=== PATIENT | female | born 1980 | race Caucasian/White ===

== ENCOUNTER 2017-05-25 18:53 | Emergency (ER) | payer MEDICAID, OTHER ==
--- NOTE | 2017-05-25 19:14 | ED Physician Documentation ---
General Adult - HISTORIAN Historian: patient - HPI Stated Complaint: Chest Pain Chief Complaint: General Adult Onset: hours Timing: still present Severity: moderate Further Comments: yes (Pt is a 37 yo female with chest pain in the L upper chest. Pain began with stomach pain. Pt has GERD for which she takes carafate. Then pain moved to L upper chest. Pt was sitting when pain began. Pt has had nausea, sob. Pt is a 2-pack/day smoker. Family hx heart dz.) - ROS CONST: no problems EYES/ENT: none CVS/RESP: chest pain, shortness of breath GI/: nausea MS/SKIN/LYMPH: none - PAST HX Past History: other (GERD) Surgeries/Procedures: , cholecystectomy Allergies/Adverse Reactions: Allergies Allergy/AdvReac Type Severity Reaction Status Date / Time No Known Allergies Allergy Verified 05/25/17 19:00 Home Medications: Ambulatory Orders Medication Instructions Recorded Sucralfate [Carafate] 1 gm PO ACHS 05/25/17 - SOCIAL HX Smoking History: greater than 1 pack/day - FAMILY HX Family History: Yes (Father CAD age < 50; Mother CHF) - VITAL SIGNS Vital Signs: Vital Signs Temp Pulse Resp BP Pulse Ox 98.0 F 82 22 125/55 98 05/25/17 19:01 05/25/17 19:01 05/25/17 19:01 05/25/17 19:01 05/25/17 19:01 - REVIEWED ASSESSMENTS Nursing Assessment Reviewed: Yes Vitals Reviewed: Yes Progress - Progress Progress: Diazepam 5 mg IV sx improved/resolved - EKG/XRAY/CT EKG: NSR (HR=79; normal EKG) XRAY: chest (no acute process) ED Results Lab/Radiology - Orders Orders: ED Orders Category Date Time Status Continuous EKG monitoring Q30M Care 05/25/17 19:01 Active Continuous Pulse Oximetry Q30M Care 05/25/17 19:01 Active CHEST 1 VIEW [RAD] Stat Exams 05/25/17 19:01 Ordered CBC/PLATELET/DIFF Routine Lab 05/25/17 19:01 Ordered CMP Routine Lab 05/25/17 19:01 Ordered CREATINE KINASE Routine Lab 05/25/17 19:01 Ordered TROPONIN I (cTnI) Stat Lab 05/25/17 19:01 Ordered Oxygen Daily Oxygen 05/25/17 19:15 Ordered EKG WITH COMPARISON Stat Ther 05/25/17 19:01 Ordered General Adult Physical Exam - PHYSICAL EXAM GENERAL APPEARANCE: mild distress (anxious) NECK: normal inspection, supple RESPIRATORY: no resp distress, chest non-tender, breath sounds normal CVS: reg rate & rhythm, heart sounds normal ABDOMEN: soft, no organomegaly, normal bowel sounds BACK: normal inspection, no CVA tenderness SKIN: warm/dry, normal color EXTREMITIES: non-tender, normal range of motion, no evidence of injury NEURO: oriented X3, motor nml, sensation nml, other (anxious) Discharge Clincal Impression: non-cardiac chest pain, anxiety Referrals: Hien Luevano MD [STAFF PHYSICIAN] - Home Medications: Ambulatory Orders Sucralfate [Carafate] 1 gm PO ACHS 05/25/17 Condition: Good Disposition: 01 HOME, SELF-CARE Decision to Admit: NO Decision Time: 21:37
[2017-05-25 19:19] LABS: BASOPHILS % 0.9 (0.0-1.5); EOSINOPHILS % 4.7 % (0.0-6.8); MEAN CORPUSCULAR HEMOGLOBIN 30.5 pg (28.0-34.0); MEAN CORPUSCULAR VOLUME 90.7 fl (80.0-100.0); MONOCYTES % 3.6 % (0.0-11.0); NEUTROPHILS # 5.4 # k/uL (1.4-7.7)
[2017-05-25 19:32] LABS: eGFR (African) > 60; eGFR (Non-African) > 60
[2017-05-25] MEDS ORDERED: DIAZEPAM 5 MG/ML DISP.SYRIN IVP ONE (20:08)
[2017-05-25 21:41] VITALS: BP 116/58
--- NOTE | 2017-05-26 06:28 | Diagnostic Imaging Report ---
SIMON GAYTAN [facility] [address] [facility] [address] [place], [place]. [address] Report Submission Date: May 25, 2017 7:55:34 PM CDT Patient Study Name: ADRYAN CALLAHAN Date: May 25, 2017 7:23:34 PM CDT Modality Type: CR Gender: F Description: CHEST : 84 Institution: [facility] Physician: SIMON GAYTAN Examination: Portable chest History: Chest discomfort Findings: Single view of the chest demonstrates a normal cardiac and mediastinal silhouette. Lung daniel without focal infiltrate. No effusion. Osseous structures are appropriate for age. Impression: No acute process given technique. Electronically signed on May 25, 2017 7:55:34 PM CDT by: Earnest TREJO
== END 2017-05-25 21:40 | disposition home or self-care (01) ==
LOC: ED 18:53
DX: R07.89 Other chest pain (principal)
CPT/HCPCS: 71010; 80053; 82550; 82553; 84484; 85025; 85379; J3360; 96372; 99283; S1016

== ENCOUNTER 2017-08-05 18:21 | Emergency (ER) | payer MEDICAID, OTHER ==
[2017-08-05 18:43] VITALS: BP 127/57
--- NOTE | 2017-08-05 18:50 | ED Physician Documentation ---
Upper Back Injury/Pain - HISTORIAN Historian: patient, friend - HPI Stated Complaint: Mid-back pain Chief Complaint: Upper Back Injury/ Pain Onset: days ago (10) Duration: continues in ED, worse Context: lifting, turning Where: work Other Injuries: back Severity: moderate Quality: burning, dull. denies: other (no prev mid back pain) Exacerbated By: movement of trunk, deep breaths Relieved By: other (gabapentin) - ROS EYES/ENT: none CVS/RESP: denies: shortness of breath (hurts to takedeep breath) CONST: denies: recent illness GI/: denies: nausea, vomiting - PAST HX Past History: intervertebral disc dis. (lumbar area) Cardiac Risk Factors: denies: cardiac disease CT/MRI: No - SOCIAL HX Smoking History: greater than 1 pack/day Alcohol Use: none Drug Use: none - FAMILY HX Family History: no significant history - REVIEWED ASSESSMENTS Nursing Assessment Reviewed: Yes Vitals Reviewed: Yes <Jordan Eid - Last Filed: 08/05/17 19:14> - ROS NEURO/PSYCH: denies: difficulty with speech <GIOVANI SOTOMAYOR - Last Filed: 08/05/17 19:36> - HPI Additional Information: significant mid dorsal back pain onset 2 weeks ago lprog worse not rel by 2400mg ibu for 4 days-some help w/moms gabapentin. has lo back deg disc disease low back but this different. 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 which makes worse ( Jordan Eid) - PAST HX Allergies/Adverse Reactions: Allergies Allergy/AdvReac Type Severity Reaction Status Date / Time No Known Allergies Allergy Verified 08/05/17 18:45 Home Medications: Ambulatory Orders Medication Instructions Recorded Cyclobenzaprine HCl [Flexeril] 10 mg PO HS #10 tablet 08/05/17 Naproxen [Naprosyn] 375 mg PO Q12H #30 tablet 08/05/17 Omeprazole [Prilosec] 40 mg PO BID 08/05/17 Ranitidine HCl 150 mg PO D 08/05/17 Sucralfate [Carafate] 1 gm PO QID 08/05/17 Tramadol HCl [Ultram] 50 mg PO Q4H PRN #18 tablet 08/05/17 - VITAL SIGNS Vital Signs: Vital Signs Temp Pulse Resp BP Pulse Ox 98.2 F 82 20 127/57 98 08/05/17 18:21 08/05/17 18:21 08/05/17 18:21 08/05/17 18:21 08/05/17 18:21 Progress <Jordan Eid - Last Filed: 08/05/17 19:14> <GIOVANI SOTOMAYOR - Last Filed: 08/05/17 19:36> - Results/Orders Results/Orders: tnsf GIOVANI 191 (Jordan Eid) - Progress Progress: Name: ADRYAN CALLAHAN Date: Aug 05, 2017 7:05:08 PM CDT Modality Type: CT\SR Gender: F Description: CT T-SPINE W/O CONTRAS : 84 Institution: [facility] Physician: JORDAN EID - ER Examination: CT thoracic spine History: Back discomfort Comparison exams: None provided Technique: CT thoracic spine axial imaging with sagittal and coronal reconstruction Findings: Sagittal reconstruction demonstrates normal height and alignment the thoracic vertebral bodies. No anterior compression deformity. Slight curvature of the upper thoracic spine to the left. Coronal reconstruction does not demonstrate locked or perched facets. Axial imaging obtained from C7 through L1 Lamina and pedicles are intact. No ossific density within the central canal. No prevertebral soft tissue abnormality. Impression: No acute osseous process. If patient's symptoms persist, consider obtaining MRI to further evaluate. Electronically signed on Aug 05, 2017 7:23:09 PM CDT by: Earnest Santoro (GIOVANI SOTOMAYOR) - Orders Orders: ED Orders Category Date Time Status THORACIC SPINE CT WITHOUT CONTRAST [CT T-SPINE W/O Exams 08/05/17 Ordered CONTRAST] Stat Upper Back Injury Physical Ex - Physical Exam General Appearance: moderate distress EENT: nml ENT inspection Neck: nml inspection Back: vertebral point-tendernes, CVA tenderness, muscle spasm (jesus mid dorsal ( bra strap line)) Respiratory: chest non-tender, breath sounds nml, tenderness. No: ecchymosis CVS: heart sounds nml Abdomen: non-tender Skin: warm/dry, normal color. No: cyanosis, diaphoresis Extremities: non-tender, normal range of motion Neuro/Psych: oriented x3, sensation nml, motor nml, mood/affect nml <Jordan Eid R - Last Filed: 08/05/17 19:14> Discharge <Jordan Eid - Last Filed: 08/05/17 19:14> Decision to Admit: NO Decision Time: 19:35 <GIOVANI SOTOMAYOR - Last Filed: 08/05/17 19:36> Clincal Impression: Back strain Qualifiers: Encounter type: initial encounter Qualified Code(s): S39.012A - Strain of muscle, fascia and tendon of lower back, initial encounter Prescriptions: Cyclobenzaprine HCl [Flexeril] 10 mg PO HS #10 tablet Naproxen [Naprosyn] 375 mg PO Q12H #30 tablet Tramadol HCl [Ultram] 50 mg PO Q4H PRN #18 tablet PRN Reason: Pain Referrals: Primary Doctor,No [Primary Care Provider] - 2 Days Additional Instructions: Follow up with your provider as needed. Heat or ice to the sore areas several times a day, followed by motion and gentle stretching. Condition: Good Disposition: 01 HOME, SELF-CARE
--- NOTE | 2017-08-06 01:44 | Diagnostic Imaging Report ---
MEENU EID [facility] [address] [facility] [address] [place] [address]. [id number] Report Submission Date: Aug 05, 2017 7:23:09 PM CDT Patient Study Name: ADRYAN CALLAHAN Date: Aug 05, 2017 7:05:08 PM CDT Modality Type: CT\SR Gender: F Description: CT T-SPINE W/O CONTRAS : 84 Institution: [facility] Physician: MEENU EID Examination: CT thoracic spine History: Back discomfort Comparison exams: None provided Technique: CT thoracic spine axial imaging with sagittal and coronal reconstruction Findings: Sagittal reconstruction demonstrates normal height and alignment the thoracic vertebral bodies. No anterior compression deformity. Slight curvature of the upper thoracic spine to the left. Coronal reconstruction does not demonstrate locked or perched facets. Axial imaging obtained from C7 through L1 Lamina and pedicles are intact. No ossific density within the central canal. No prevertebral soft tissue abnormality. Impression: No acute osseous process. If patient's symptoms persist, consider obtaining MRI to further evaluate. Electronically signed on Aug 05, 2017 7:23:09 PM CDT by: Earnest TREJO
== END 2017-08-05 19:44 | disposition home or self-care (01) ==
LOC: ED 18:21
DX: S39.012A Strain of muscle, fascia and tendon of lower back, initial encounter (principal); X58.XXXA Exposure to other specified factors, initial encounter; Y93.9 Activity, unspecified; Y99.9 Unspecified external cause status
CPT/HCPCS: 72128; 99283

== ENCOUNTER 2017-09-21 15:27 | Emergency (ER) | payer MEDICAID, OTHER ==
--- NOTE | 2017-09-21 15:30 | ED Physician Documentation ---
General Adult - HISTORIAN Historian: patient - HPI Stated Complaint: sore throat Chief Complaint: General Adult Onset: days ago (2) Timing: still present Severity: moderate Further Comments: yes (Pt is a 37 yo female with sore throat x 2 days. No fever. Pt is having difficulty swallowing.) - ROS CONST: other (achy) EYES/ENT: sore throat CVS/RESP: none GI/: none MS/SKIN/LYMPH: none - PAST HX Past History: other (GERD) Surgeries/Procedures: , cholecystectomy Allergies/Adverse Reactions: Allergies Allergy/AdvReac Type Severity Reaction Status Date / Time No Known Allergies Allergy Verified 09/21/17 15:49 Home Medications: Ambulatory Orders Medication Instructions Recorded Omeprazole [Prilosec] 40 mg PO BID 08/05/17 Sucralfate [Carafate] 1 gm PO QID 08/05/17 - SOCIAL HX Smoking History: cigarettes - FAMILY HX Family History: No - VITAL SIGNS Vital Signs: Vital Signs Temp Pulse Resp BP Pulse Ox 127/57 08/05/17 18:21 - REVIEWED ASSESSMENTS Nursing Assessment Reviewed: Yes Vitals Reviewed: Yes Progress - Progress Progress: Rapid Strep - neg Pt declined Influenza A&B test. Penicillin VK 500 mg. Take one every 8 hrs for 10 days. Rx Prednisone 50 mg. Take one by mouth once daily for 4 days. Start on . General Adult Physical Exam - PHYSICAL EXAM GENERAL APPEARANCE: moderate distress EENT: pharyngeal erythema NECK: normal inspection, supple, lymphadenopathy RESPIRATORY: no resp distress, chest non-tender, breath sounds normal CVS: reg rate & rhythm, heart sounds normal ABDOMEN: soft, no organomegaly, normal bowel sounds BACK: normal inspection SKIN: warm/dry, normal color EXTREMITIES: non-tender, normal range of motion, no evidence of injury NEURO: oriented X3, motor nml, sensation nml Discharge Clincal Impression: Pharyngitis Qualifiers: Pharyngitis/tonsillitis etiology: unspecified etiology Qualified Code(s): J02.9 - Acute pharyngitis, unspecified Referrals: Primary Doctor,No [Primary Care Provider] - Condition: Good Disposition: 01 HOME, SELF-CARE Decision to Admit: NO Decision Time: 16:17
[2017-09-21 15:53] VITALS: BP 121/46
[2017-09-21] MEDS ORDERED: methylPREDNISolone SOD SUCC 125 MG/2 ML VIAL IM ONE (16:03)
[2017-09-21] MEDS ORDERED: methylPREDNISolone SOD SUCC 125 MG/2 ML VIAL ONE (16:04)
[2017-09-21 16:09] LABS: BASOPHILS % 0.8 (0.0-1.5); EOSINOPHILS % 3.7 % (0.0-6.8); MEAN CORPUSCULAR HEMOGLOBIN 28.8 pg (28.0-34.0); MEAN CORPUSCULAR VOLUME 89.7 fl (80.0-100.0); MONOCYTES % 3.4 % (0.0-11.0); NEUTROPHILS # 7.9 # k/uL (1.4-7.7)
[2017-09-21 16:23] LABS: eGFR (African) > 60; eGFR (Non-African) > 60
== END 2017-09-21 16:29 | disposition home or self-care (01) ==
LOC: ED 15:27
DX: J02.9 Acute pharyngitis, unspecified (principal)
CPT/HCPCS: 36415; 80053; 85025; 86308; 87070; 87880; J2930; 96372; 99283

== ENCOUNTER 2017-11-13 15:20 | Outpatient (CLI) | payer MEDICAID, OTHER ==
--- NOTE | 2017-11-13 18:42 | Diagnostic Imaging Report ---
NANCY BAE~ [facility] [address] [facility].[address] [address] ~ ~ ~ ~ Report Submission Date: Nov 13, 2017 4:17:21 PM [employer] Patient ~ Study Name: ADRYAN CALLAHAN ~ Date: Nov 13, 2017 3:50:54 PM [employer] ~ Modality Type: CR Gender: F ~ Description: LOWER EXTREMITY : 84 ~ Institution: [facility] Physician: NANCY BAE ~ ~ ~ Examination: Plain film foot ~ History:~ Discomfort Findings: 3 views of the foot demonstrates normal cortical margins. No fracture or dislocation. ~Inferior calcaneal spur. No soft tissue swelling. No joint effusion. Impression: No acute osseous process. ~ Electronically signed on Nov 13, 2017 4:17:21 PM [employer] by: Earnest TREJO
== END 2017-11-13 15:22 ==
LOC: RAD 15:20
PROVIDERS: ATTEND Family Medicine
DX: M77.42 Metatarsalgia, left foot (principal)
CPT/HCPCS: 73630

== ENCOUNTER 2018-01-25 13:51 | Emergency (ER) | payer MEDICAID, OTHER ==
--- NOTE | 2018-01-25 14:10 | ED Physician Documentation ---
Upper Respiratory Symptoms - HISTORIAN Historian: patient - HPI Stated Complaint: cough Chief Complaint: Fever Onset: days ago (4) Duration: constant Context: denies: recent foreign travel, insect bite(s), tick(s), recent chemotherapy Severity: mild Associated Symptoms: fever, chills, productive cough. denies: sore throat, hurts to breathe Worsened by Deep Breath: No Further Comments: yes (She states that she started to cough on and has been running a fever. She has a cough that is productive. She has only tried Ibuprofen for the fever. she has no other complaints. She denies any other sick contacts) - ROS CONST/EYES: denies: weakness CVS/RESP: denies: chest pain, shortness of breath LYMPH: denies: rash GI/: diarrhea (she had diarrhea over a week ago ). denies: vomiting, nausea NEURO/PSYCH: denies: dizziness MS/SKIN: denies: rash - PAST HX Lung Disease: none PE Risk Factors: none Surgeries/Procedures: none Immunizations: UTD Allergies/Adverse Reactions: Allergies Allergy/AdvReac Type Severity Reaction Status Date / Time No Known Allergies Allergy Verified 01/25/18 14:11 Home Medications: Ambulatory Orders Medication Instructions Recorded Omeprazole [Prilosec] 40 mg PO BID 08/05/17 Sucralfate [Carafate] 1 gm PO QID 08/05/17 - SOCIAL HX Smoking History: cigarettes Alcohol Use: none Drug Use: none - FAMILY HX Family History: none - VITAL SIGNS Vital Signs: Vital Signs Temp Pulse Resp BP Pulse Ox 121/46 09/21/17 16:29 - REVIEWED ASSESSMENTS Nursing Assessment Reviewed: Yes Vitals Reviewed: Yes Upper Respiratory Symptoms - EXAM General Appearance: no acute distress, alert EENT: eyes nml inspection. No: TM erythema, pharynx nml Respiratory: no resp. distress, breath sounds nml, no pain on inspiration Abdomen: non-tender CVS: reg rate & rhythm, heart sounds normal, equal pulses Skin: color nml, no rash, warm,dry Extremities: non-tender, normal range of motion, no edema Neuro/Psych: oriented x3 Discharge Clincal Impression: Viral URI with cough Referrals: Jeremiah Lujan MD [Primary Care Provider] - 2 Days Additional Instructions: 1. increase fluids 2. OTC meds for symptom relief 3. Rest 4. Follow up with PCP in 2-4 days 5. Return to ER for any concerns. Condition: Stable Disposition: 01 HOME, SELF-CARE Decision to Admit: NO Date of Decison to Admit: 01/25/18 Decision Time: 14:45
[2018-01-25 14:56] VITALS: BP 124/70
== END 2018-01-25 14:51 | disposition home or self-care (01) ==
LOC: ED 13:51
DX: J06.9 Acute upper respiratory infection, unspecified (principal); R05 Cough
CPT/HCPCS: 99282

== ENCOUNTER 2018-07-30 21:55 | Emergency (ER) | payer MEDICAID, OTHER ==
[2018-07-30 23:12] VITALS: BP 128/38
[2018-07-30] MEDS: traMADol HCL 50 MG TABLET PO ONE (23:30)
--- NOTE | 2018-07-30 23:36 | ED Physician Documentation ---
Sore Throat/Dental Pain - HPI Stated Complaint: "DENTAL PAIN STARTED THIS EVENING" Chief Complaint: Dental Pain Additional Information: intro self as [employer]. pt presents to the ED via POV c/o dental pain. pt has a hx of dental caries and is from [place]. pt has tried ibuprofen for the pain with no improvement. pt denies other symptoms or complaints. Onset: hours (4) Context: Dental Caries. denies: Foreign Body, Fractured Tooth, Abscess, Possible Infection Associated Symptoms: denies: fever, chills, sore throat, R ear pain, L ear pain, swollen glands - ROS CONST: no problems CVS/RESP: none. denies: chest pain, shortness of breath GI/: denies: problems urinating, nausea, vomiting MS/SKIN/LYMPH: denies: muscle aches, rash NEURO/PSYCH: none - PAST HX Past History: none Allergies/Adverse Reactions: Allergies Allergy/AdvReac Type Severity Reaction Status Date / Time No Known Allergies Allergy Verified 01/25/18 14:11 Home Medications: Ambulatory Orders Medication Instructions Recorded Omeprazole [Prilosec] 40 mg PO BID 08/05/17 Sucralfate [Carafate] 1 gm PO QID 08/05/17 - SOCIAL HX Smoking History: less than 1 pack/day - FAMILY HX Family History: No - VITAL SIGNS Vital Signs: Vital Signs Temp Pulse Resp BP Pulse Ox 97.8 F 80 12 128/38 98 07/30/18 23:08 07/30/18 23:08 07/30/18 23:08 07/30/18 23:08 07/30/18 23:08 - REVIEWED ASSESSMENTS Nursing Assessment Reviewed: Yes Vitals Reviewed: Yes ED Results Lab/Radiology - Orders Orders: ED Orders Category Date Time Status traMADol HCL [Ultram] Med 07/30/18 23:25 Once 50 mg PO NOW ONE Dental Pain Physical Exam - EXAM General Appearance: no acute distress, alert Head/Neck: trachea midline, no lymphadenopathy, neck nml inspection. No: cervical lymphadenopathy, pain on palpation (R), pain on palpation (L) Eyes: eyes nml inspection Mouth/Throat: widespread dental decay. No: gum swelling around teeth, pharyngeal erythema, tonsillar exudate Ear/Nose: nml inspection Respiratory: no resp. distress Extremities: nml ROM Skin: warm/dry, normal color Neuro/Psych: none Discharge Clincal Impression: Dental caries, Chronic dental pain Referrals: Jeremiah Lujan MD [Primary Care Provider] - 2 Days Additional Instructions: ORAJEL OVER THE COUNTER. APPLY TO COTTON BALL. PLACE IN GUM LINE OVER EFFECTED TOOTH. FOLLOW UP WITH DENTIST CAMILLE. LOCATE DENTAL EMERGENCY CLINIC THIS WEEKEND OR MAKE APPT THURSDAY. TYLENOL AND MOTRIN FOR PAIN. ICE PACKS FOR 20 MIN AT A TIME ON OUTER CHEEK ON AFFECTED SIDE. Condition: Good Disposition: 01 HOME, SELF-CARE Decision to Admit: NO Date of Decison to Admit: 07/30/18 Decision Time: 23:35
== END 2018-07-30 23:45 | disposition home or self-care (01) ==
LOC: ED 21:55
DX: K08.89 Other specified disorders of teeth and supporting structures (principal)
CPT/HCPCS: 99282

== ENCOUNTER 2018-08-14 19:21 | Emergency (ER) | payer MEDICAID, OTHER ==
[2018-08-14] MEDS ORDERED: IPRATROPIUM/ALBUTEROL SULFATE 3 ML AMPUL.NEB NEB ONE (19:40)
--- NOTE | 2018-08-14 20:12 | ED Physician Documentation ---
Upper Respiratory Symptoms - HPI Stated Complaint: "I have been congested for 2 weeks" Chief Complaint: Cough/ Upper Respiratory Additional Information: Patient presents to ED with a 2 week history of worsening productive cough, nasal congestion, shortness of breath. She has been taking over the counter medications with little improvement. Today she states it hurt to breathe so she came to the ER. She admits to intermittent low grade fever of 100.0. Onset: days ago (14) Duration: constant Context: denies: recent foreign travel Severity: moderate Associated Symptoms: fever (100.0), chills, sinus drainage, productive cough, shortness of breath, hurts to breathe, headache Worsened by Deep Breath: Yes Further Comments: no - ROS CONST/EYES: denies: weakness CVS/RESP: chest pain LYMPH: leg swelling NEURO/PSYCH: denies: fainting - PAST HX Lung Disease: COPD PE Risk Factors: denies: hx DVT, hx of PE Allergies/Adverse Reactions: Allergies Allergy/AdvReac Type Severity Reaction Status Date / Time No Known Allergies Allergy Verified 08/14/18 19:34 Home Medications: Ambulatory Orders Medication Instructions Recorded Omeprazole [Prilosec] 40 mg PO BID 08/05/17 Sucralfate [Carafate] 1 gm PO QID 08/05/17 Levofloxacin [Levaquin] 500 mg PO DAILY 7 Days tablet 08/14/18 predniSONE [Deltasone] 40 mg PO DAILY #6 tablet 08/14/18 - SOCIAL HX Smoking History: greater than 1 pack/day Alcohol Use: none Drug Use: none - FAMILY HX Family History: none - VITAL SIGNS Vital Signs: Vital Signs Temp Pulse Resp BP Pulse Ox 98.8 F 90 16 131/68 97 08/14/18 19:36 08/14/18 19:36 08/14/18 19:36 08/14/18 19:36 08/14/18 19:36 - REVIEWED ASSESSMENTS Nursing Assessment Reviewed: Yes Vitals Reviewed: Yes ED Results Lab/Radiology - Lab Results Lab Results: Lab Results 08/14/18 08/14/18 20:18 20:18 WBC 10.80 K/ul K/ul (4.00-12.00) RBC 4.71 M/ul M/ul (3.90-5.20) Hgb 13.4 g/dL g/dL (12.0-16.0) Hct 40.7 % % (34.5-46.5) MCV 86.0 fl fl (80.0-100.0) MCH 28.4 pg pg (28.0-34.0) MCHC 32.9 g/dL g/dL (30.0-36.0) RDW 13.5 % % (11.3-14.3) Plt Count 327 K/mm3 K/mm3 (130-400) Neut % (Auto) 60.1 % % (39.0-79.0) Lymph % (Auto) 32.8 % % (16.0-50.0) Cooper % (Auto) 4.4 % % (0.0-11.0) Eos % (Auto) 2.2 % % (0.0-6.8) Baso % (Auto) 0.5 (0.0-1.5) Neut # (Auto) 6.5 # k/uL # k/uL (1.4-7.7) Lymph # (Auto) 3.5 # k/uL # k/uL (0.6-4.0) Cooper # (Auto) 0.5 # k/uL # k/uL (0.0-0.9) Eos # (Auto) 0.2 # k/uL # k/uL (0.0-0.6) Baso # (Auto) 0.1 # k/uL # k/uL (0.0-0.5) Sodium 142 mmol/L mmol/L (136-145) Potassium 3.3 mmol/L L mmol/L (3.5-5.1) Chloride 109 mmol/L H mmol/L (98-107) Carbon Dioxide 20 mmol/L L mmol/L (22-30) BUN 12 mg/dL mg/dL (7-17) Creatinine 0.50 mg/dL L mg/dL (0.52-1.04) Estimated Creat Clear 288 Est GFR ( Amer) > 60 (60 - ) Est GFR (Non-Af Amer) > 60 (60 - ) Glucose 128 mg/dL H mg/dL (74-106) Calcium 8.4 mg/dL mg/dL (8.4-10.2) Total Bilirubin 0.1 mg/dL L mg/dL (0.2-1.3) AST 21 U/L U/L (15-46) ALT 23 U/L U/L (13-69) Alkaline Phosphatase 93 U/L U/L (38-126) Total Protein 7.3 g/dL g/dL (6.3-8.2) Albumin 3.9 g/dL g/dL (3.5-5.0) - Radiology Radiology Impressions: PA AND LATERAL CHEST HISTORY: Shortness of breath. Cough. COMPARISON: None PA and Lateral Chest dated August 14, 2018 demonstrates a normal cardiomediastinal silhouette. Pulmonary vascularity is normal. Lungs are clear. IMPRESSION: NO ACTIVE DISEASE. Electronically signed on Aug 14, 2018 8:08:25 PM CDT by: Angie Rhodes - Orders Orders: ED Orders Category Date Time Status Place IV Lock 1T Care 08/14/18 19:40 Active CHEST 2VIEW [RAD] Stat Exams 08/14/18 Completed CBC/PLATELET/DIFF Routine Lab 08/14/18 20:18 Completed CMP Routine Lab 08/14/18 20:18 Completed 0.9 % Sodium Chloride [Sodium Chloride] 100 ml Med 08/14/18 20:37 Discontinued IV .STK-MED Ipratropium/Albuterol Sulfate [Duoneb] Med 08/14/18 19:40 Discontinued 3 ml NEB NOW ONE cefTRIAXone SODIUM [Rocephin] Med 08/14/18 20:37 Discontinued 1 gm .ROUTE .STK-MED ONE cefTRIAXone SODIUM [Rocephin] 1 gm Med 08/14/18 20:16 Discontinued 0.9 % Sodium Chloride [Sodium Chloride] 50 ml IV NOW methylPREDNISolone SOD SUCC [Solu-MEDROL] Med 08/14/18 20:17 Discontinued 125 mg IVP NOW ONE methylPREDNISolone SOD SUCC [Solu-MEDROL] 125 mg Med 08/14/18 19:41 Discontinued 0.9 % Sodium Chloride [Sodium Chloride] 100 ml IV NOW Upper Respiratory Symptoms - EXAM General Appearance: no acute distress EENT: nml ENT inspection Neck: supple. No: lymphadenopathy Respiratory: no resp. distress (right basilar rhonchi. Scattered wheezing bilaterally) Abdomen: non-tender, no distention CVS: reg rate & rhythm Skin: color nml, no rash, warm,dry Extremities: no edema Neuro/Psych: oriented x3 Discharge Clincal Impression: Acute bronchitis Qualifiers: Bronchitis organism: unspecified organism Qualified Code(s): J20.9 - Acute bronchitis, unspecified Prescriptions: Levofloxacin [Levaquin] 500 mg PO DAILY 7 Days tablet predniSONE [Deltasone] 40 mg PO DAILY #6 tablet Referrals: Jeremiah Lujan MD [Primary Care Provider] - 2 Days Condition: Stable Disposition: 01 HOME, SELF-CARE Decision to Admit: NO Date of Decison to Admit: 08/14/18 Decision Time: 21:29
[2018-08-14] MEDS ORDERED: cefTRIAXone SODIUM 1 GM in 0.9 % SODIUM CHLORIDE 50 ML IV ONE (20:16)
[2018-08-14] MEDS ORDERED: methylPREDNISolone SOD SUCC 125 MG/2 ML VIAL IVP ONE (20:17)
[2018-08-14 20:22] LABS: MEAN CORPUSCULAR HEMOGLOBIN 28.4 pg (28.0-34.0)
[2018-08-14 20:23] LABS: BASOPHILS % 0.5 (0.0-1.5); EOSINOPHILS % 2.2 % (0.0-6.8); MONOCYTES % 4.4 % (0.0-11.0); NEUTROPHILS # 6.5 # k/uL (1.4-7.7)
[2018-08-14 20:34] LABS: eGFR (Non-African) > 60
[2018-08-14] MEDS ORDERED: 0.9 % SODIUM CHLORIDE 100 ML IV ONE (20:37)
[2018-08-14] MEDS ORDERED: cefTRIAXone SODIUM 1 GM VIAL ONE (20:37)
--- NOTE | 2018-08-14 20:37 | Diagnostic Imaging Report ---
KAIA SENIOR [facility] [address] [facility] [address] [place], [place]. [address] Report Submission Date: Aug 14, 2018 8:08:25 PM CDT Patient Study Name: ADRYAN CALLAHAN Date: Aug 14, 2018 7:40:43 PM CDT Modality Type: DX Gender: F Description: CHEST : 84 Institution: [facility] Physician: KAIA SENIOR PA AND LATERAL CHEST HISTORY: Shortness of breath. Cough. COMPARISON: None PA and Lateral Chest dated August 14, 2018 demonstrates a normal cardiomediastinal silhouette. Pulmonary vascularity is normal. Lungs are clear. IMPRESSION: NO ACTIVE DISEASE. Electronically signed on Aug 14, 2018 8:08:25 PM CDT by: Angie TREJO
[2018-08-14 21:46] VITALS: BP 128/58
== END 2018-08-14 21:40 | disposition home or self-care (01) ==
LOC: ED 19:21
DX: J20.9 Acute bronchitis, unspecified (principal)
CPT/HCPCS: 71046; 80053; 85025; J0696; J2930; 94640; 96374; 96375; S1016